=== PATIENT | female | born 1995 | race Two or more races ===

== ENCOUNTER 2016-11-10 07:48 | Emergency (ER) | payer MEDICAID ==
[~2016-11-10] VITALS: Ht 160 cm; Wt 64.6 kg
[~2016-11-10 07:48] MED LIST: CEPH-37 PO; ONDA4TAB8 PO
[2016-11-10 08:08] VITALS: BP 95/56
[2016-11-10 09:39] LABS: Urine Bilirubin Negative (Negative); Urine Color Yellow (Yellow); Urine Glucose Normal (Normal); Urine Hyaline Cast FEW /lpf (0 - 2); Urine Ketone Negative (Negative); Urine Nitrite Negative (Negative); Urine RBC 13 /hpf (0 - 4); Urine Squamous Epithelial Cell FEW /hpf (<5); Urine Urobilinogen Normal (Negative); Urine WBC Clumps PRESENT /hpf (None Seen)
[2016-11-10 09:43] LABS: Urine Blood 2+ /uL (Negative)
== END 2016-11-10 09:34 | disposition home or self-care (01) ==
LOC: ER 07:48
DX: N39.0 Urinary tract infection, site not specified (principal); J45.909 Unspecified asthma, uncomplicated; Z79.899 Other long term (current) drug therapy
CPT/HCPCS: 81001; 81025

== ENCOUNTER 2020-12-18 22:35 | Emergency (ER) | payer MEDICAID ==
[~2020-12-18] VITALS: Ht 157.5 cm; Wt 75.7 kg
[~2020-12-18 22:35] MED LIST changes: +ONDA-101 PO; -ONDA4TAB8 PO
[2020-12-18] MEDS ORDERED: methylPREDNISolone SOD SUCC 125 MG/2 ML VL IM ONE (23:00)
[2020-12-19] MEDS ORDERED: diphenhdrAMINE HCL 25 MG CAP PO ONE (03:00)
[2020-12-19] MEDS ORDERED: FAMOTIDINE 20 MG TAB PO ONE (03:00)
[2020-12-19 05:22] VITALS: BP 102/50
== END 2020-12-19 06:54 | disposition home or self-care (01) ==
LOC: ER 22:41
DX: T78.49XA Other allergy, initial encounter (principal); L50.9 Urticaria, unspecified; R22.0 Localized swelling, mass and lump, head; R06.00 Dyspnea, unspecified; J45.909 Unspecified asthma, uncomplicated; Z79.899 Other long term (current) drug therapy; X58.XXXA Exposure to other specified factors, initial encounter
CPT/HCPCS: 96372; 99283; J2930